=== PATIENT | male | born 1940 | race Caucasian/White ===

== ENCOUNTER → 2020-08-22 01:53 | Outpatient (CLI) | payer MEDICARE, OTHER, SELFPAY ==
[2020-08-22 19:17] LABS: SARS-CoV-2 RNA PCR Negative
== END ==
PROVIDERS: PCP Family Medicine; Visit Provider Internal Medicine Gastroenterology
DX: Z01.812 Encounter for preprocedural laboratory examination (principal); Z20.822 Contact with and (suspected) exposure to COVID-19
CPT/HCPCS: C9803; U0003; U0005

== ENCOUNTER 2020-08-26 00:53 | Day surgery (SDC) | payer MEDICARE, OTHER, SELFPAY ==
[2020-08-14 08:52] VITALS: BMI 29.3
[2020-08-26 06:51] VITALS: BP 184/81; PULSE 98; RESP 18; TEMP 36.3; O2SAT 100; BMI 28.2
[2020-08-26] MEDS: LACTATED RINGERS 1,000 ML 150 ML IV CONT (06:58)
--- NOTE | 2020-08-26 07:18 | PM.HPGS ---
History of Present Illness History of Present Illness Consent: Risks, benefits, and alternatives have been discussed and questions answered. Patient agrees to proceed with procedure. Chief complaint: hx colon polyps Narrative: Tristen Hoffmann is a 80 year old male was a history of having had polyps 20 years ago. It has been almost at long since his last colonoscopy. Recently he has seen blood in his stools. A colorectal surgeon told him that it was from hemorrhoids but at this point did not need surgery Review of Systems Review of Systems: All systems reviewed & are unremarkable except as noted in HPI and below PMFSH Family History Family History Mother Patient's mother is , Onset Age: 88 Sibling Family history of condition Father Family history of chronic obstructive pulmonary disease, Onset Age: 80 Social History Social History Tobacco type: cigarettes Alcohol intake: never Drinks per week: 1 Substance use type: does not use Living arrangements: with family Gender identity (if verbalized by the patient): Male Meds Home Medications and Allergies Home Medications Medication Instructions Recorded Confirmed Type multivitamin 1 tablet PO DAILY 03/27/19 08/14/20 History tamsulosin 0.4 mg capsule 0.4 mg PO DAILY #90 cap 07/07/20 08/14/20 Rx losartan 100 mg tablet See Rx Instructions .ROUTE 08/11/20 08/14/20 Rx .COMPLEX #90 tablet sulfamethoxazole 800 1 tablet PO Q12H #28 tablet 08/25/20 08/25/20 Rx mg-trimethoprim 160 mg tablet Allergies Allergy/AdvReac Type Severity Reaction Status Date / Time lisinopril Allergy Unknown Cough Verified 08/26/20 06:50 metoprolol Allergy Unknown peeling on Verified 08/26/20 06:50 the tongue Vital Signs Vital Signs - 24 hr 08/26/20 06:51 Temperature 36.3 C L Pulse Rate 98 Respiratory Rate 18 Blood Pressure 184/81 H Pulse Oximetry 100 Exam Resp: Auscultation: clear to auscultation bilaterally Cardio: Rate: regular rate Rhythm: regular rhythm GI: GI Palp: Yes Soft to palpation and No Tenderness to palpation present (GI) Assessment and Plan Assessment and plan (1) Blood in stool: Code(s): K92.1 - Melena Status: Acute Assessment and Plan: Colonoscopy with possible biopsy or polypectomy or cautery or injection of substances.
--- NOTE | 2020-08-26 07:53 | WPDANESEPPF ---
Anes - Initial Pre Proc Eval Procedure: Operation Date: 08/26/20 08:00 Proposed Procedures p Screening Colonoscopy - Mario Salazar MD Date/Time: 08/26/20 07:53 Surgeon: Mario Salazar MD Pre Op Diagnosis: hx colon polyps Patient Data Age: 80 Gender: M Height: 5 ft 10 in Weight: 89.2 kg Last Vital Signs Temp 36.3 C L 08/26/20 06:51 Pulse 98 08/26/20 06:51 Resp 18 08/26/20 06:51 BP 184/81 H 08/26/20 06:51 Pulse Ox 100 08/26/20 06:51 Allergies Allergy/AdvReac Type Severity Reaction Status Date / Time lisinopril Allergy Unknown Cough Verified 08/26/20 06:50 metoprolol Allergy Unknown peeling on Verified 08/26/20 06:50 the tongue Home Medications Medication Instructions Recorded Confirmed Type multivitamin 1 tablet PO DAILY 03/27/19 08/14/20 History tamsulosin 0.4 mg capsule 0.4 mg PO DAILY #90 cap 07/07/20 08/14/20 Rx losartan 100 mg tablet See Rx Instructions .ROUTE 08/11/20 08/14/20 Rx .COMPLEX #90 tablet sulfamethoxazole 800 1 tablet PO Q12H #28 tablet 08/25/20 08/25/20 Rx mg-trimethoprim 160 mg tablet Patient hx anesthesia problems: none Family hx anesthesia problems: none PMFSH Past Medical History Medical History Essential (primary) hypertension Family History Family History Mother Patient's mother is , Onset Age: 88 Sibling Family history of condition Father Family history of chronic obstructive pulmonary disease, Onset Age: 80 Social History Social History Tobacco type: cigarettes Alcohol intake: never Drinks per week: 1 Substance use type: does not use Living arrangements: with family Gender identity (if verbalized by the patient): Male Anes - Eval Final PreProcedure Day of Procedure 08/26/20 07:53 Patient weight: overweight Heart: regular rate and rhythm Lungs: clear to auscultation Airway: Mallampati scale class II Neurological: alert and oriented Last oral intake: >/= 8 hours ASA classification: II Emergent: no Anesthetic plan: proceed Anesthesia type and monitoring: general GIVS and standard monitoring Informed Consent: The patient's anesthetic plan and its attendant risks and benefits were discussed with the patient/family/POA. Questions were solicited and answers provided to the satisfaction of the patient/family/POA.
[2020-08-26 08:23] VITALS: BP 95/57; PULSE 62; RESP 17; O2SAT 99
[2020-08-26 08:33] VITALS: BP 106/62; PULSE 60; RESP 17; O2SAT 100
[2020-08-26 08:43] VITALS: BP 138/80; PULSE 70; RESP 18; O2SAT 100
== END 2020-08-26 08:59 | disposition home or self-care (01) ==
PROVIDERS: PCP Family Medicine; Visit Provider Internal Medicine Gastroenterology
PROC: 0DJD8ZZ Inspection of Lower Intestinal Tract, Via Natural or Artificial Opening Endoscopic (ICD-10-PCS; CPT 45378; principal; 2020-08-26 08:00)
DX: C20 Malignant neoplasm of rectum (principal); D12.5 Benign neoplasm of sigmoid colon; D12.3 Benign neoplasm of transverse colon; K63.5 Polyp of colon; K64.8 Other hemorrhoids; I10 Essential (primary) hypertension
CPT/HCPCS: 45380; 45385; 88305; 88313; 88342; J2001; J2704; J7120

== ENCOUNTER 2020-09-03 06:39 | Outpatient (CLI) | payer MEDICARE, OTHER, SELFPAY ==
--- NOTE | ~2020-09-03 | CT_ITS ---
EXAMINATION: CT abdomen pelvis w con DATE: 09/03/2020 07:19 INDICATION: Rectal mass. TECHNIQUE: Computed tomography (CT) of the abdomen and pelvis was performed with 100 mL Omnipaque 350 intravenous contrast. Automated exposure control and iterative reconstruction technique were employe d. The dose-length product was 533.85 mGy-cm. COMPARISON: None. FINDINGS: The visualized portions of the lung bases demonstrate mild emphysema. There are greater tamie n 10 scattered pulmonary nodules measuring up to 11 mm in left lower lobe. No pleural effusion. The h eart size is normal. There are coronary artery calcifications. There are calcifications of aortic janelle ve. No pericardial effusion. There are cysts in the liver measuring up to 9 mm. In the right hepatic lobe, there is a 6.5 x 4.9 cm mass. In the left hepatic lobe, there is a 12.2 x 5.8 cm mass. The gall bladder, spleen, pancreas, adrenal glands, and kidneys are normal. The prostate is moderately enlarge d. There is diverticulosis of the colon without evidence of diverticulitis. There is a 5.5 x 2.2 cm m ass of the tip of the appendix with invasion of the rectosigmoid colon and bladder. There is an endol uminal surgical clip in the rectosigmoid in this area. There is a small left inguinal hernia containi ng fat. There are no pathologically enlarged lymph nodes. There is no free intraperitoneal fluid. The re is severe lumbar spondylosis. IMPRESSION: 1. Mass of the appendiceal tip with invasion of the rectosigmoid colon and bladder, consistent with p rimary malignancy. 2. Liver masses and lung nodules, consistent with metastatic disease. Reviewed, dictated and finalized at location B. IMPRESSION: 1. Mass of the appendiceal tip with invasion of the rectosigmoid colon and blad juan carlos, consistent with primary malignancy. 2. Liver masses and lung nodules, consistent with metastatic disease.
[2020-09-03 07:07] LABS: Estimated Glomerular Filt Rate 58
== END 2020-09-03 06:40 | disposition home or self-care (01) ==
PROVIDERS: PCP Family Medicine; Visit Provider Internal Medicine Gastroenterology
DX: K62.89 Other specified diseases of anus and rectum (principal); R16.0 Hepatomegaly, not elsewhere classified; R91.8 Other nonspecific abnormal finding of lung field
CPT/HCPCS: 74177; Q9967

== ENCOUNTER 2020-10-13 13:49 | Outpatient (CLI) | payer MEDICARE, OTHER, SELFPAY ==
[2020-10-13 14:19] LABS: Basophils Percent Auto 0.4 % (0.2-1.2); Eosinophils Absolute Auto 0.1 K/mm3 (0-0.3); Eosinophils Percent Auto 1.7 % (0-4.4); Hematocrit 33.1 % (42.0-52.0); Hemoglobin 10.9 g/dL (14.0-18.0); Immature Granulocyte Absolute 0.04 K/mm3 (0.00-0.031); Immature Granulocyte Percent A 0.5 % (0-0.5); Lymphocytes Absolute Auto 1.79 K/mm3 (0.9-3.2); Lymphocytes Percent Auto 21.5 % (18.3-44.2); Mean Corpuscular HGB Conc 32.9 g/dl (32-36); Mean Corpuscular Hemoglobin 28.8 pg (26-34); Mean Corpuscular Volume 87.6 fl (80-100); Mean Platelet Volume 7.8 fl (7.4-10.4); Monocytes Absolute Auto 0.6 K/mm3 (0.1-0.6); Monocytes Percent Auto 7.6 % (2.6-8.5); Neutrophils Absolute Auto 5.7 K/mm3 (1.3-6.7); Neutrophils Percent Auto 68.3 % (45.5-73.1); Platelet Count Result 228 k/mm3 (150-375); Red Blood Count 3.78 M/mm3 (4.6-6.20); Red Cell Distribution Width 14.9 % (11.5-14.5); White Blood Count 8.3 K/mm3 (4.5-10.0)
[2020-10-13 14:32] LABS: Alanine Aminotransferase 59 U/L (4-50); Albumin Level 3.7 g/dL (3.5-5.1); Alkaline Phosphatase 94 U/L (38-126); Anion Gap 7 mmol/L (8-16); Aspartate Amino Transferase 74 U/L (17-59); Bilirubin,Total 0.8 mg/dL (0.2-1.3); Blood Urea Nitrogen 17 mg/dL (9-20); Carbon Dioxide 26 mmol/L (22-30); Chloride 93 mmol/L (98-107); Estimated Glomerular Filt Rate 58; Glucose 107 mg/dL (75-110); Potassium 4.6 mmol/L (3.4-5.0); Sodium 126 mmol/L (137-145)
== END 2020-10-13 13:50 | disposition home or self-care (01) ==
PROVIDERS: PCP Family Medicine
DX: C7B.8 Other secondary neuroendocrine tumors (principal)
CPT/HCPCS: 36415; 80053; 85025

== ENCOUNTER 2020-12-01 10:59 | Outpatient (CLI) | payer MEDICARE, OTHER, SELFPAY ==
[2020-12-01 11:41] LABS: Basophils Percent Auto 0.5 % (0.2-1.2); Eosinophils Absolute Auto 0.1 K/mm3 (0-0.3); Eosinophils Percent Auto 1.4 % (0-4.4); Hematocrit 34.8 % (42.0-52.0); Hemoglobin 11.3 g/dL (14.0-18.0); Immature Granulocyte Absolute 0.06 K/mm3 (0.00-0.031); Immature Granulocyte Percent A 1.6 % (0-0.5); Lymphocytes Percent Auto 29.7 % (18.3-44.2); Mean Corpuscular HGB Conc 32.5 g/dl (32-36); Mean Corpuscular Hemoglobin 30.1 pg (26-34); Mean Corpuscular Volume 92.6 fl (80-100); Monocytes Absolute Auto 0.1 K/mm3 (0.1-0.6); Monocytes Percent Auto 1.4 % (2.6-8.5); Neutrophils Absolute Auto 2.4 K/mm3 (1.3-6.7); Neutrophils Percent Auto 65.4 % (45.5-73.1); Platelet Count Result 103 k/mm3 (150-375); Red Blood Count 3.76 M/mm3 (4.6-6.20); Red Cell Distribution Width 16.2 % (11.5-14.5); White Blood Count 3.7 K/mm3 (4.5-10.0)
[2020-12-01 11:54] LABS: Alanine Aminotransferase 24 U/L (4-50); Alkaline Phosphatase 97 U/L (38-126); Anion Gap 7 mmol/L (8-16); Aspartate Amino Transferase 33 U/L (17-59); Bilirubin,Total 0.4 mg/dL (0.2-1.3); Blood Urea Nitrogen 18 mg/dL (9-20); Calcium 9.4 mg/dL (8.4-10.2); Carbon Dioxide 25 mmol/L (22-30); Chloride 94 mmol/L (98-107); Estimated Glomerular Filt Rate > 60; Glucose 87 mg/dL (65-110); Potassium 5.3 mmol/L (3.4-5.0); Sodium 126 mmol/L (137-145)
[2020-12-01 12:23] LABS: Anisocytosis 1+ (NORMAL); Ovalocytes 1+ (NORMAL); Poikilocytosis 1+ (NORMAL)
== END 2020-12-01 11:00 | disposition home or self-care (01) ==
PROVIDERS: PCP Family Medicine
DX: C7B.8 Other secondary neuroendocrine tumors (principal)
CPT/HCPCS: 36415; 80053; 85025

== ENCOUNTER 2021-04-01 13:08 | Outpatient (CLI) | payer MEDICARE, OTHER, SELFPAY ==
[2021-04-01 14:17] LABS: Alanine Aminotransferase 64 U/L (4-50); Albumin Level 3.8 g/dL (3.5-5.1); Alkaline Phosphatase 102 U/L (38-126); Anion Gap 8 mmol/L (8-16); Aspartate Amino Transferase 60 U/L (17-59); Bilirubin,Total 0.6 mg/dL (0.2-1.3); Blood Urea Nitrogen 30 mg/dL (9-20); Calcium 9.6 mg/dL (8.4-10.2); Carbon Dioxide 23 mmol/L (22-30); Chloride 97 mmol/L (98-107); Cholesterol 254 mg/dL (0-200); Estimated Glomerular Filt Rate > 60; Glucose 119 mg/dL (65-110); HDL Direct 36 mg/dL; Potassium 4.4 mmol/L (3.4-5.0); Sodium 128 mmol/L (137-145); Triglycerides 62 mg/dL (<150)
[2021-04-01 14:25] LABS: Iron 23 ug/dL (49-181)
[2021-04-01 14:26] LABS: LDL Cholesterol Direct 195 mg/dL
[2021-04-01 14:43] LABS: Vitamin D 25 Hydroxy 50.6 ng/mL
[2021-04-01 15:30] LABS: Folic Acid 8.9 ng/mL (2.76->20)
[2021-04-06 15:38] LABS: Vitamin K1 1322 pg/mL (130-1500)
== END 2021-04-01 13:09 | disposition home or self-care (01) ==
PROVIDERS: PCP Family Medicine; Visit Provider Family Medicine
DX: C19 Malignant neoplasm of rectosigmoid junction (principal); C7B.8 Other secondary neuroendocrine tumors; D12.6 Benign neoplasm of colon, unspecified; I10 Essential (primary) hypertension
CPT/HCPCS: 36415; 80053; 80061; 82306; 82607; 82728; 82746; 83540; 84597

== ENCOUNTER 2021-07-02 14:56 | Outpatient (CLI) | payer OTHER, MEDICARE, SELFPAY ==
[2021-07-02 15:21] LABS: Basophils Percent Auto 0.2 % (0.2-1.2); Eosinophils Percent Auto 0.1 % (0-4.4); Hematocrit 28.3 % (42.0-52.0); Hemoglobin 9.7 g/dL (14.0-18.0); Immature Granulocyte Absolute 0.07 K/mm3 (0.00-0.031); Immature Granulocyte Percent A 0.8 % (0-0.5); Lymphocytes Absolute Auto 1.25 K/mm3 (0.9-3.2); Mean Corpuscular HGB Conc 34.3 g/dl (32-36); Mean Corpuscular Hemoglobin 31.5 pg (26-34); Mean Corpuscular Volume 91.9 fl (80-100); Mean Platelet Volume 7.9 fl (7.4-10.4); Monocytes Absolute Auto 0.5 K/mm3 (0.1-0.6); Monocytes Percent Auto 5.4 % (2.6-8.5); Neutrophils Absolute Auto 6.5 K/mm3 (1.3-6.7); Neutrophils Percent Auto 78.5 % (45.5-73.1); Platelet Count Result 123 k/mm3 (150-375); Red Blood Count 3.08 M/mm3 (4.6-6.20); White Blood Count 8.3 K/mm3 (4.5-10.0)
[2021-07-02 15:45] LABS: Alanine Aminotransferase 25 U/L (4-50); Albumin Level 3.5 g/dL (3.5-5.1); Alkaline Phosphatase 115 U/L (38-126); Anion Gap 5 mmol/L (8-16); Aspartate Amino Transferase 70 U/L (17-59); Bilirubin,Total 0.8 mg/dL (0.2-1.3); Blood Urea Nitrogen 19 mg/dL (9-20); Calcium 8.6 mg/dL (8.4-10.2); Carbon Dioxide 26 mmol/L (22-30); Chloride 89 mmol/L (98-107); Estimated Glomerular Filt Rate > 60; Glucose 92 mg/dL (65-110); Potassium 4.6 mmol/L (3.4-5.0); Sodium 120 mmol/L (137-145)
== END 2021-07-02 14:57 | disposition home or self-care (01) ==
LOC: ANHLAB 15:01
PROVIDERS: PCP Family Medicine; Visit Provider Family Medicine
DX: C7B.8 Other secondary neuroendocrine tumors (principal); I10 Essential (primary) hypertension; E78.5 Hyperlipidemia, unspecified
CPT/HCPCS: 36415; 80053; 84443; 85025